=== PATIENT | male | born 1975 | race Caucasian/White ===

== ENCOUNTER 2017-06-08 18:20 | Inpatient (IN) | payer OTHER ==
[2017-06-08] MEDS: SOD CHLORIDE 0.9% 1,000 ML IV (01:00)
[2017-06-08 20:04] LABS: ADD MAN DIFF? NO
[2017-06-08 20:08] LABS: BASOPHILS % 0.2 % (0.0-2.0); EOSINOPHILS # 0.1 10^3/ul (0.0-0.5); EOSINOPHILS % 0.9 % (0.0-7.0); HEMATOCRIT 35.3 % (42.0-52.0); HEMOGLOBIN 12.2 g/dl (14.0-18.0); LYMPHOCYTES # 0.7 10^3/ul (0.8-2.9); LYMPHOCYTES % 12.8 % (15.0-51.0); MEAN CORPUSCULAR HEMOGLOBIN 30.7 pg (29.0-33.0); MEAN CORPUSCULAR HGB CONC 34.6 g/dl (32.0-37.0); MEAN CORPUSCULAR VOLUME 88.9 fl (82.0-101.0); MEAN PLATELET VOLUME 10.7 fl (7.4-10.4); MONOCYTE # 0.5 10^3/ul (0.3-0.9); MONOCYTES % 9.4 % (0.0-11.0); NEUTROPHIL # 4.1 10^3/ul (1.6-7.5); NEUTROPHILS % 76.5 % (39.0-77.0); PLATELET COUNT 145 10^3/UL (140-415); RED BLOOD COUNT 3.97 10^6/ul (4.70-6.10); RED CELL DISTRIBUTION WIDTH 12.7 % (11.5-14.5)
[2017-06-08 20:08] LABS: WHITE BLOOD COUNT 5.3 10^3/ul (4.8-10.8)
[2017-06-08] MEDS: SODIUM CHLORIDE 0.9% 1L BAG IV* (20:08)
[2017-06-08 20:22] LABS: INR 1.04; PROTIME 13.7 Sec (11.9-14.9); PT RATIO 1.1
[2017-06-08 20:23] LABS: PARTIAL THROMBOPLASTIN TIME 32.1 Sec (25.0-35.0)
[2017-06-08 20:32] LABS: ALANINE AMINOTRANSFERASE 21 IU/L (13-69); ALBUMIN 4.1 g/dl (3.3-4.9); ALBUMIN/GLOBULIN RATIO 1.02; ALKALINE PHOSPHATASE 64 IU/L (42-121); ANION GAP 15 (8-16); ASPARTATE AMINO TRANSFERASE 23 IU/L (15-46); BILIRUBIN,INDIRECT 0.3 mg/dl (0-1.1); BILIRUBIN,TOTAL 0.3 mg/dl (0.2-1.3); BLOOD UREA NITROGEN 15 mg/dl (7-20); CALCIUM 8.9 mg/dl (8.4-10.2); CARBON DIOXIDE 28 mmol/L (21-31); CHLORIDE 100 mmol/L (97-110); CREATININE 1.21 mg/dl (0.61-1.24); GLUCOSE 155 mg/dl (70-220); POTASSIUM 4.3 mmol/L (3.5-5.1); SODIUM 139 mmol/L (135-144); TOTAL PROTEIN 8.1 g/dl (6.1-8.1)
[2017-06-08 20:33] LABS: LACTIC ACID 1.6 mmol/L (0.5-2.0)
[2017-06-08] MEDS: CEFEPIME 2GM/50 ML (PMX) 50 ML IVPB (20:36)
[2017-06-08] MEDS: IBUPROFEN 800 MG TAB PO (20:37)
[2017-06-08] MEDS: VANCOMYCIN 1 GM (PMX) 250 ML IVPB (20:37)
[2017-06-08 20:54] LABS: TROPONIN-I < 0.012 ng/ml (0.00-0.12)
[2017-06-08] MEDS: ACETAMINOPHEN 500 MG TAB PO (22:06)
[2017-06-08 22:51] LABS: LACTIC ACID 1.4 mmol/L (0.5-2.0)
[2017-06-08] MEDS ORDERED: ONDANSETRON 4 MG INJ IV (23:00)
[2017-06-08] MEDS ORDERED: ACETAMINOPHEN 325 MG TAB PO (23:00)
[2017-06-09 01:17] LABS: LACTIC ACID 0.7 mmol/L (0.5-2.0)
[2017-06-09] MEDS ORDERED: HYDROCODONE/APAP (5/325) TAB PO (02:00)
[2017-06-09] MEDS ORDERED: GLUCOSE GEL 15 GRAM TUBE PO ×2 (02:00)
[2017-06-09] MEDS ORDERED: IBUPROFEN 600 MG TAB PO (02:00)
[2017-06-09] MEDS ORDERED: GLUCOSE GEL 15 GRAM TUBE BUCCAL (02:00)
[2017-06-09] MEDS ORDERED: DEXTROSE 50% 50 ML SYRINGE IV ×2 (02:00)
[2017-06-09] MEDS ORDERED: GLUCAGON 1 MG INJ IM (02:00)
[2017-06-09] MEDS ORDERED: VANCOMYCIN IV PER PHARMACY XX (02:00)
[2017-06-09] MEDS: CEFEPIME 2GM/50 ML (PMX) 50 ML IVPB ×3 (03:45→20:50)
[2017-06-09] MEDS: VANCOMYCIN 1.5 GM in SOD CHLORIDE 0.9% 250 ML IVPB ×2 (04:41→17:26)
[2017-06-09 05:30] LABS: ADD MAN DIFF? NO
[2017-06-09] MEDS: PANTOPRAZOLE (EC) 40 MG TAB PO (05:35)
[2017-06-09 05:46] LABS: BASOPHILS % 0.7 % (0.0-2.0); EOSINOPHILS # 0.1 10^3/ul (0.0-0.5); EOSINOPHILS % 1.9 % (0.0-7.0); HEMATOCRIT 30.8 % (42.0-52.0); HEMOGLOBIN 10.5 g/dl (14.0-18.0); LYMPHOCYTES # 1.5 10^3/ul (0.8-2.9); LYMPHOCYTES % 34.4 % (15.0-51.0); MEAN CORPUSCULAR HEMOGLOBIN 30.6 pg (29.0-33.0); MEAN CORPUSCULAR HGB CONC 34.1 g/dl (32.0-37.0); MEAN CORPUSCULAR VOLUME 89.8 fl (82.0-101.0); MEAN PLATELET VOLUME 10.9 fl (7.4-10.4); MONOCYTE # 0.6 10^3/ul (0.3-0.9); MONOCYTES % 14.8 % (0.0-11.0); NEUTROPHILS % 47.7 % (39.0-77.0); PLATELET COUNT 121 10^3/UL (140-415); RED BLOOD COUNT 3.43 10^6/ul (4.70-6.10)
[2017-06-09 05:46] LABS: WHITE BLOOD COUNT 4.3 10^3/ul (4.8-10.8)
[2017-06-09 06:53] LABS: ANION GAP 10 (8-16); BLOOD UREA NITROGEN 12 mg/dl (7-20); CALCIUM 7.8 mg/dl (8.4-10.2); CARBON DIOXIDE 26 mmol/L (21-31); CHLORIDE 111 mmol/L (97-110); CREATININE 1.07 mg/dl (0.61-1.24); GLUCOSE 119 mg/dl (70-220); POTASSIUM 4.2 mmol/L (3.5-5.1); SODIUM 143 mmol/L (135-144)
[2017-06-09] MEDS: metFORMIN 500 MG TAB PO ×2 (08:12→18:32)
[2017-06-09] MEDS: INSULIN ASPART [NOVOLOG] 3 ML PEN SC ×3 (08:13→17:26)
[2017-06-09] MEDS: TRIMETHOPRIM/SULFAMETHOX (DS) TAB PO (08:17)
[2017-06-09] MEDS: ACCU-CHEK XX ×5 (10:05→20:13)
[2017-06-10] MEDS: CEFEPIME 2GM/50 ML (PMX) 50 ML IVPB ×2 (04:11→11:49)
[2017-06-10] MEDS: PANTOPRAZOLE (EC) 40 MG TAB PO (05:03)
[2017-06-10] MEDS: VANCOMYCIN 1.5 GM in SOD CHLORIDE 0.9% 250 ML IVPB (05:03)
[2017-06-10 06:08] LABS: ADD MAN DIFF? NO
[2017-06-10 06:12] LABS: BASOPHILS % 0.7 % (0.0-2.0); EOSINOPHILS # 0.2 10^3/ul (0.0-0.5); EOSINOPHILS % 5.2 % (0.0-7.0); HEMATOCRIT 31.5 % (42.0-52.0); LYMPHOCYTES % 23.9 % (15.0-51.0); MEAN CORPUSCULAR HEMOGLOBIN 30.8 pg (29.0-33.0); MEAN CORPUSCULAR HGB CONC 34.9 g/dl (32.0-37.0); MEAN CORPUSCULAR VOLUME 88.2 fl (82.0-101.0); MEAN PLATELET VOLUME 10.7 fl (7.4-10.4); MONOCYTE # 0.4 10^3/ul (0.3-0.9); MONOCYTES % 10.9 % (0.0-11.0); NEUTROPHIL # 2.4 10^3/ul (1.6-7.5); NEUTROPHILS % 59.3 % (39.0-77.0); PLATELET COUNT 141 10^3/UL (140-415); RED BLOOD COUNT 3.57 10^6/ul (4.70-6.10); RED CELL DISTRIBUTION WIDTH 12.7 % (11.5-14.5)
[2017-06-10 06:37] LABS: ALANINE AMINOTRANSFERASE 26 IU/L (13-69); ALBUMIN 3.5 g/dl (3.3-4.9); ALBUMIN/GLOBULIN RATIO 1.06; ALKALINE PHOSPHATASE 54 IU/L (42-121); ANION GAP 13 (8-16); ASPARTATE AMINO TRANSFERASE 16 IU/L (15-46); BILIRUBIN,INDIRECT 0.1 mg/dl (0-1.1); BILIRUBIN,TOTAL 0.1 mg/dl (0.2-1.3); BLOOD UREA NITROGEN 12 mg/dl (7-20); CALCIUM 8.7 mg/dl (8.4-10.2); CARBON DIOXIDE 26 mmol/L (21-31); CHLORIDE 108 mmol/L (97-110); CREATININE 1.01 mg/dl (0.61-1.24); GLUCOSE 137 mg/dl (70-220); POTASSIUM 4.1 mmol/L (3.5-5.1); SODIUM 143 mmol/L (135-144); TOTAL PROTEIN 6.8 g/dl (6.1-8.1)
[2017-06-10 07:01] LABS: HEMOGLOBIN A1C 6.3 % (0-5.9)
[2017-06-10] MEDS: ACCU-CHEK XX ×6 (07:48→20:26)
[2017-06-10] MEDS: INSULIN ASPART [NOVOLOG] 3 ML PEN SC ×3 (07:49→17:22)
[2017-06-10 08:13] LABS: ERYTHROCYTE SEDIMENTATION RATE 77 mm/Hr (0-15)
[2017-06-10] MEDS: metFORMIN 500 MG TAB PO ×2 (08:18→18:27)
[2017-06-10] MEDS: FLUCONAZOLE 100 MG TAB NGT (14:35)
[2017-06-10] MEDS: CEFTAZIDIME 1GM/50 ML (PMX) 50 ML IVPB ×2 (15:36→21:06)
[2017-06-10] MEDS: LIDOCAINE 1% (MPF) 5 ML VIAL SC (19:30)
[2017-06-11] MEDS: PANTOPRAZOLE (EC) 40 MG TAB PO (06:08)
[2017-06-11] MEDS: CEFTAZIDIME 1GM/50 ML (PMX) 50 ML IVPB ×3 (06:09→21:48)
[2017-06-11] MEDS: INSULIN ASPART [NOVOLOG] 3 ML PEN SC ×3 (08:15→17:33)
[2017-06-11] MEDS: metFORMIN 500 MG TAB PO ×2 (08:35→17:31)
[2017-06-11] MEDS: FLUCONAZOLE 100 MG TAB NGT (08:35)
[2017-06-11] MEDS: ACCU-CHEK XX ×6 (08:36→19:50)
[2017-06-11] MEDS: AZITHROMYCIN 250 MG TAB PO (12:15)
[2017-06-11] MEDS: LIDOCAINE 1% (MPF) 5 ML VIAL SC (13:56)
[2017-06-12] MEDS: PANTOPRAZOLE (EC) 40 MG TAB PO (06:08)
[2017-06-12] MEDS: CEFTAZIDIME 1GM/50 ML (PMX) 50 ML IVPB ×2 (06:08→14:11)
[2017-06-12] MEDS: ACCU-CHEK XX ×4 (08:00→14:11)
[2017-06-12] MEDS: INSULIN ASPART [NOVOLOG] 3 ML PEN SC ×2 (08:15→12:18)
[2017-06-12] MEDS: FLUCONAZOLE 100 MG TAB NGT (08:16)
[2017-06-12] MEDS: metFORMIN 500 MG TAB PO (08:17)
== END 2017-06-12 16:35 | disposition home health service (06) | DRG 638 ==
LOC: MS2 22:50 → E/R 18:20
PROVIDERS: Internal Medicine
PROC: 02HV33Z Insertion of Infusion Device into Superior Vena Cava, Percutaneous Approach (ICD-10-PCS; principal; 2017-06-11)
DX: E11.69 Type 2 diabetes mellitus with other specified complication (principal); M86.172 Other acute osteomyelitis, left ankle and foot; E11.621 Type 2 diabetes mellitus with foot ulcer; E11.42 Type 2 diabetes mellitus with diabetic polyneuropathy; L97.522 Non-pressure chronic ulcer of other part of left foot with fat layer exposed; I10 Essential (primary) hypertension; E78.5 Hyperlipidemia, unspecified; F17.200 Nicotine dependence, unspecified, uncomplicated; Z91.14 Patient's other noncompliance with medication regimen; E66.9 Obesity, unspecified; Z68.32 Body mass index [BMI] 32.0-32.9, adult; B96.5 Pseudomonas (aeruginosa) (mallei) (pseudomallei) as the cause of diseases classified elsewhere; B95.61 Methicillin susceptible Staphylococcus aureus infection as the cause of diseases classified elsewhere; B95.1 Streptococcus, group B, as the cause of diseases classified elsewhere
CPT/HCPCS: 36415; 36569; 71045; 73660; 73718; 76937; 80048; 80053; 82962; 83036; 83605; 84484; 85025; 85610; 85651; 85730; 87040; 87070; 93005; 93922; 96374; 96375; 99285-25

== ENCOUNTER 2017-07-26 20:13 | Emergency (ER) | payer OTHER ==
[2017-07-26] MEDS: HYDROCORTISONE 2.5% 28.35 GM OINT TOP (22:39)
== END 2017-07-26 23:15 | disposition home or self-care (01) ==
LOC: FTE 20:13
DX: L30.9 Dermatitis, unspecified (principal); E11.9 Type 2 diabetes mellitus without complications; Z79.84 Long term (current) use of oral hypoglycemic drugs; Z87.891 Personal history of nicotine dependence
CPT/HCPCS: 99283